=== PATIENT | male | born 1950 | race Caucasian/White ===

== ENCOUNTER 2021-04-07 08:40 | Outpatient (REF) | payer MEDICARE, SELFPAY ==
--- NOTE | ~2021-04-07 | MM_ITS ---
EXAMINATION: BONE DENSITOMETRY CLINICAL INDICATION: Osteopenia. COMPARISON: Previous BD dated 04/11/2018 and baseline BD dated 09/15/1999. TECHNIQUE: Using a [employer] DXA System (software version: 13.1) manufactured by [employer], dual-energy x-ray absorptiometry was performed of the lumbar spine and left hip. The images are of good technical quality. Summary results are attached. FINDINGS: AP SPINE L1-L4: Current: BMD 1.049 g/cm2, Z-score -1.6, T-score -1.4, osteopenia, 2.5% increase from previous, 1.5% increase from baseline (<5% change is not significant). Prior: BMD 1.023 g/cm2. Baseline: BMD 1.033 g/cm2. LEFT FEMUR, NECK: Current: BMD 0.848 g/cm2, Z-score -0.9, T-score -1.7, osteopenia. Prior: BMD 0.915 g/cm2. Baseline: BMD 0.901 g/cm2. LEFT FEMUR, TOTAL: Current: BMD 1.077 g/cm2, Z-score 0.1, T-score -0.2, normal, 1.2% decrease from previous, 2.7% increase from baseline (<5% change is not significant). Prior: BMD 1.090 g/cm2. Baseline: BMD 1.049 g/cm2. IDENTIFIED RISK FACTORS: Intestinal/bowel disease, secondary osteoporosis. HISTORY OF FRACTURE: None listed. MEDICATIONS: Vitamin D. MM/XR DEXA axial skeleton IMPRESSION: 1. DIAGNOSIS: Osteopenia based on the lowest T-score value of -1.7 in the femoral neck applying World Health Organization criteria. 2. 10-YEAR FRACTURE RISK PREDICTION, FRAX: Major osteoporotic fracture (clinical spine, forearm, hip or shoulder) 6.5%. Hip fracture 1.5%. 3. Treatment Recommendations: NOF guidelines recommend consideration for treatment in postmenopausal women and men age 50 and older presenting with the following: -A hip or vertebral (clinical or morphometric) fracture. -T-score less than or equal to -2.5 at the femoral neck or spine after appropriate evaluation to exclude secondary causes. -Low bone mass at the hip or spine and a 10-year fracture probability by FRAX of greater than or equal to 3% for hip fracture or greater than or equal to 20% for major osteoporotic fracture based on the [place] adapted WHO algorithm. 4. Other Recommendations: All treatment decisions require clinical judgment and consideration of individual patient factors, including patient preferences, comorbidities, previous drug use, risk factors not captured in the FRAX model (e.g. frailty, falls, vitamin D deficiency, increased bone turnover, interval significant decline in bone density) and possible under or overestimation of fracture risk by FRAX. Additional medical evaluation for secondary cause of low bone mineral density may be appropriate. FUTURE SCAN RECOMMENDATION: People with diagnosed cases of osteoporosis or at high risk for fracture should have regular bone mineral density tests. For patients eligible for Medicare, routine testing is allowed once every 2 years. The testing frequency can be increased to one year for patients who have rapidly progressing disease, those who are receiving or discontinuing medical therapy to restore bone mass, or have additional risk factors.
== END 2021-04-07 08:41 | disposition home or self-care (01) ==
LOC: HO.MAMMO 08:40
PROVIDERS: PCP Internal Medicine; Visit Provider Internal Medicine
DX: Z13.820 Encounter for screening for osteoporosis (principal); M85.88 Other specified disorders of bone density and structure, other site
CPT/HCPCS: 77080

== ENCOUNTER 2021-04-18 10:37 | Outpatient (REF) | payer MEDICARE, SELFPAY ==
[2021-04-18 10:43] LABS: MANUAL DIFF FLAG NO
[2021-04-18 11:06] LABS: Basophils Absolute Auto 0.1 X10*3/uL (0.0-0.2); Basophils Percent Auto 0.8 % (0-2); Eosinophils Absolute Auto 0.3 X10*3/uL (0.0-0.4); Eosinophils Percent Auto 3.7 % (0-4); Hematocrit 46.6 % (42-52); Hemoglobin 15.4 g/dl (14.0-18.0); Imm Gran Abs Auto 0.04 X10*3/uL (0.00-0.03); Imm Gran Pct Auto 0.5 % (0.0-0.4); Lymphocytes Absolute Auto 2.3 X10*3/uL (1.2-4.9); Lymphocytes Percent Auto 29.9 % (20-40); Mean Corpuscular Volume 90.8 fL (80-98); Mean Platelet Volume 10.8 fL (9.4-12.4); Monocytes Absolute Auto 0.7 X10*3/uL (0.1-1.2); Neutrophils Absolute Auto 4.2 X10*3/uL (2.0-8.3); Neutrophils Percent Auto 56.1 % (45-73); Platelet Count 231 X10*3/uL (160-400); Red Blood Count 5.13 X10*6/uL (4.60-5.80); Red Cell Distribution Width 13.8 % (11.0-16.0); White Blood Count 7.6 X10*3/uL (4.8-10.8)
[2021-04-18 11:34] LABS: Estimated Average Glucose 126 mg/dL
[2021-04-18 11:42] LABS: Alanine Aminotransferase 59 U/L (0-40); Albumin Level 3.9 g/dL (3.5-5.0); Alkaline Phosphatase 90 U/L (39-117); Anion Gap 14 (12-20); Aspartate Amino Transferase 43 U/L (5-37); Bilirubin Total 0.5 mg/dL (0.0-1.0); Blood Urea Nitrogen 14 mg/dL (9-16); Calcium 9.2 mg/dL (8.4-10.2); Carbon Dioxide 21 mmol/L (22-29); Chloride 111 mmol/L (96-108); Cholesterol 138 mg/dL; Estimated Glomerular Filt Rate > 60; Glucose Fasting 124 mg/dL (60-99); HDL Cholesterol 30 mg/dL; LDL Cholesterol Calculated 87 mg/dl; Sodium 142 mmol/L (135-145); Total Protein 6.8 g/dL (6.5-8.0); Triglycerides 105 mg/dL
[2021-04-18 12:01] LABS: Reflex LDLD? No
[2021-04-18 12:08] LABS: PSA,Total (Free>4and<10) 1.81 ng/mL (0.00-4.00); Vitamin D 25-OH Total 29.2 ng/mL (>30)
[2021-04-18 12:28] LABS: Appearance Urine CLEAR; Color Urine YELLOW; Glucose Urine UA NEG (NEG); Leukocyte Esterase Urine NEG (NEG); Nitrite Urine NEG (NEG); PH 5.5 (5.0-8.0); Specific Gravity - Urine >= 1.030 (1.005-1.025); Urine Blood NEG (NEG); Urine Ketones NEG (NEG); Urine Protein NEG (NEG-TRACE)
[2021-04-18 13:34] LABS: Creatinine Urine 227.29 mg/dL; Microalbum/Creatinine Ratio Ur 8.3 ug/mg cr
== END 2021-04-18 10:38 | disposition home or self-care (01) ==
LOC: HO.LNP 10:37
PROVIDERS: Visit Provider Internal Medicine
DX: Z00.00 Encounter for general adult medical examination without abnormal findings (principal); E78.00 Pure hypercholesterolemia, unspecified; R73.03 Prediabetes; R79.89 Other specified abnormal findings of blood chemistry; I10 Essential (primary) hypertension; M81.0 Age-related osteoporosis without current pathological fracture; E55.9 Vitamin D deficiency, unspecified; Z12.5 Encounter for screening for malignant neoplasm of prostate
CPT/HCPCS: 80053; 80061; 81003; 82043; 82306; 83036; 84153; 85025

== ENCOUNTER → 2022-02-13 09:24 | Outpatient (REF) | payer MEDICARE, SELFPAY ==
--- NOTE | 2022-02-13 09:28 | CA_ITS ---
Acquisition Time: 2022-02-13 09:46:34 Total Exercise Time: 00:05:23 Test Indications: Abnormal ECG Medications: FLOMAX ATORVASTATIN HCTZ LISINOPRIL MISOLAMINE Protocol: NORBERT Max HR: 126 BPM 85% of Pred: 148 BPM Max BP: 208/062 mmHG Max Work Load: 7.6 METS Exercise stress test using Norbert protocol, total 5 min 23 se, METS 7.60, MAPHR 85%. Test ended due to increased SOB without CP. Mild scooped ST depressions in leads 2, 3 and V4-V6, with occasional PVC's. Hypertensive response to exercise. Test reviewed with Dr. Hernandes Recomending Nuclear stress test and ECHO Referred By: Renato Martinez Overread By: Jackie White NP
== END ==
LOC: HO.CARD 09:24
PROVIDERS: Absent Provider Internal Medicine; PCP Internal Medicine; Visit Provider Internal Medicine
DX: R07.9 Chest pain, unspecified (principal)
CPT/HCPCS: 93017

== ENCOUNTER → 2022-03-26 07:53 | Outpatient (REF) | payer MEDICARE, SELFPAY ==
--- NOTE | ~2022-03-26 | NM_ITS ---
EXERCISE MYOCARDIAL PERFUSION STUDY INDICATION: Abnormal EKG, abnormal stress test. TECHNIQUE: The patient was brought in for an exercise perfusion study on 03/26/2022. Patient performed exercise as per Rudy protocol and was injected 30 mCi of sestamibi once target heart rate was achieved. Images were obtained using the SPECT gamma camera interlaced with the gating device. Images were obtained in supine position. Resting perfusion study was performed on 03/27/2022. Patient was administered 30 mCi of sestamibi intravenously at rest. Images were then obtained in supine position. Total DLP 110mGy-cm. Images were processed with the software and compared side to side in short axis, horizontal long axis and vertical long axis views. FINDINGS: Raw images were reviewed. The stress perfusion study showed diminished tracer uptake along the inferior wall and parts of inferior septum. There is improvement with CT attenuation correction suggestive of diaphragmatic attenuation artifact. There is also slightly diminished tracer uptake at the apex. Suspect artifactual. The gated study shows normal LV systolic function with calculated LVEF of 65%. LV cavity is normal in size. The gated study shows normal wall thickening and contraction of segments. Resting study shows diminished tracer uptake along the inferior wall and parts of inferior septum, similar to stress acquisition. There is improvement with CT attenuation correction suggestive of diaphragmatic attenuation artifact. Slightly diminished tracer uptake at the apex, similar to the stress acquisition, probably artifactual. Gating at rest reveals normal wall motion with ejection fraction at 62%. The findings are consistent with fixed inferior defect likely from diaphragmatic attenuation artifact. Small apical defect, fixed, likely artifactual NM/NM kimberly perf SPECT rest & str IMPRESSION: 1. Myocardial perfusion imaging study shows no clear evidence of any ischemia or infarction. Likely normal myocardial perfusion. 2. Gated LVEF is 65% during stress and 62% during rest. 3. Transient ischemic dilatation not present. EKG component of the test reported separately.
--- NOTE | 2022-03-26 07:58 | CA_ITS ---
Transthoracic Echocardiogram Patient (Last, First, Middle): Azael Castro L Gender: Male Date of : 1950 Age: 71 Procedure Date: 03/26/2022 Procedure Type: Transthoracic Echocardiogram Location: OP Height: 167.64 cm Weight: 96.16 kg BSA: 2.05 m2 Heart Rate: bpm BP: 130 / 80 mmHg [employer] Crewmember: SB Referring MD: Renato Martinez MD Symptoms: R94.31`ABNORMAL EKG R07.9 CHEST PAIN Study Quality: Adequate w contrast ECG Rhythm: Bradycardia Conclusions: - The left ventricular systolic function is normal. The calculated ejection fraction is 67% by biplane method. - No obvious valvular pathology seen on this study. Findings Procedure Information Contrast agent, definity, is being given per protocol without apparent complications. Left Ventricle Normal left ventricular cavity size. There is normal left ventricular wall thickness. The left ventricular systolic function is normal. The calculated ejection fraction is 67% by biplane method. There is no evidence of regional wall motion abnormalities. Diastolic function is normal for age. Right Ventricle Normal right ventricular cavity size and systolic function. Atria Both atria are normal in size. Aortic Valve There is a normal trileaflet aortic valve. There is no aortic valve stenosis. There is no aortic valve regurgitation. Mitral Valve The mitral valve appears normal. There is no mitral valve regurgitation. There is no mitral valve stenosis. Pulmonic Valve The pulmonic valve is likely normal. Tricuspid Valve Normal tricuspid valve structure. There is trace tricuspid valve regurgitation. The pulmonary artery systolic pressure is normal. Great Vessels The asc aorta and aortic arch are normal in size. Venous The inferior vena cava is normal in size and collapses greater than 50% with inspiration. Pericardium/Pleural There is no evidence of pericardial effusion. Prior Study Comparison No prior study available for comparison. Recommendations, Care & Conclusions No obvious valvular pathology seen on this study. Measurements 2D Linear Measurements IVSd: 0.97 0.6-0.9/0.6-1.0 cm LVIDd: 4.90 3.9-5.3/4.2-5.9 cm LVIDd Index: 2.39 2.4-3.2/2.2-3.1 cm/m2 LVIDs: 3.21 2.0-3.6 cm LVPWd: 0.91 0.7-1.1 cm LA Diam: 4.00 2.7-3.8/3.0-4.0 cm LAIDs Index: 1.95 1.5-2.3 cm/m2 LV Mass: 201.20 67-162/88-224 g LV Mass Index: 98.15 43-95/49-115 g/m2 LVOT Diam: 2.20 3.0+(-)1.3 cm 2D Systolic Function EF 4C: 69.90 >55% EF 2C: 63.40 >55% EF BiP: 66.80 >55% Mitral Valve MV Pk E: 0.74 MV PK A: 0.58 MV Decel Time: 215.00 E/A: 1.30 E'Medial: 7.62 E/E' Med: 9.70 PHT: 63.00 MVA PHT: 3.49 Decel [place]: 3.45 Aortic Valve AoV Pk Sly: 1.28 AoV Mn Sly: 0.85 AoV VTI: 0.28 AoV Pk Grad: 7.00 Aov Mn Grad: 3.00 GINETTE Cont.VTI: 2.86 LVOT LVOT Pk Sly: 1.02 LVOT Mn Sly: 0.67 LVOT VTI: 0.21 LVOT Pk Grad: 4.00 LVOT Mn Grad: 2.00 LVOT Diam: 2.20 LVOT Area: 3.80 Diastolic Function MV Pk E: 0.74 MV Pk A: 0.58 E/A: 1.30 E'Medial: 7.62 E/E' Med: 9.70 Right Ventricle TAPSE (mm): 21.40 TVS' Sly: 12.50 Tricuspid Valve RA Press: 8.00 Great Vessels Aorta Sinus of Valsalva: 3.20 2.0-3.5 cm Ao Asc: 3.20 2.1-3.4 cm Ao Arch: 3.10 Pulmonary Valve PV Pk Sly: 1.47 Peak PV Grad: 9.00 Updated in Other Vendor System with Status of Final Sen Ford MD electronically signed on 03/26/2022 12:05:39 PM with status of Final
--- NOTE | 2022-03-26 08:00 | CA_ITS ---
Acquisition Time: 2022-03-26 09:30:10 Total Exercise Time: 00:07:40 Test Indications: ABN EKG, ABN ETT Medications: SEE CHART Protocol: NORBERT Max HR: 127 BPM 85% of Pred: 148 BPM Max BP: 210/060 mmHG Max Work Load: 9.5 METS Exercise stress test with exercise 7 min 40 sec of Norbert protocol, achieving 85% MPHR, with moderate shortness of breath, no chest discomfort, with isolated PVC and PACs, with hypertensive response to exercise with max BP 210/60, without EKG changes meeting criteria for ischemia, with borderline ST changes noted, Nuclear images pending. Test reviewed with Dr Ford Referred By: Renato Martinez Overread By: GLENN ABRAHAM
== END ==
LOC: HO.CARD 07:53
PROVIDERS: PCP Internal Medicine; Visit Provider Internal Medicine
DX: R07.9 Chest pain, unspecified (principal); R94.39 Abnormal result of other cardiovascular function study
CPT/HCPCS: 78452; 93017; 93306; A9500; Q9957

== ENCOUNTER 2023-02-04 08:37 | Day surgery (SDC) | payer OTHER, SELFPAY ==
--- NOTE | 2023-02-01 11:50 | HO.ANESPROP2 ---
HPI - Anesthesia Eval Consult details Narrative: 72yo M for Colonoscopy COUNT INCLUDES THE [facility] Past Medical History Medical History (Updated 02/01/23 @ 11:05 by Amparo Booth, RN) Elevated cholesterol HTN (hypertension) Kidney stone Ulcerative colitis Surgical History Surgical History (Updated 02/01/23 @ 11:06 by Amparo Booth, RN) Hx of colonoscopy Meds Allergies Allergy/AdvReac Type Severity Reaction Status Date / Time No Known Allergies Allergy Verified 02/01/23 11:04 Home Medications Medication Instructions Recorded Confirmed Last Taken Type Vitamin C PO 02/01/23 Unknown History atorvastatin 10 mg tablet 10 mg PO DAILY 02/01/23 02/01/23 Unknown History cobalamine combinations capsule cap PO 02/01/23 02/01/23 Unknown History hydrochlorothiazide 25 mg tablet 25 mg PO DAILY 02/01/23 02/01/23 Unknown History lisinopril PO 02/01/23 Unknown History mesalamine 1.2 gram tablet,delayed 2.4 g PO DAILY 02/01/23 02/01/23 Unknown History release vitamin B complex 1 tab PO DAILY 02/01/23 02/01/23 Unknown History Exam Exam Date and Time: February 01, 2023 1150 Assessment and Plan Assessment Anesthesia Assessment: Chart Reviewed
[2023-02-04 08:54] VITALS: BP 169/94; PULSE 83; RESP 18; TEMP 36.6; O2SAT 97; BMI 31.0
[2023-02-04 09:22] VITALS: BP 169/94; PULSE 83; RESP 18; TEMP 36.6; O2SAT 97
--- NOTE | 2023-02-04 09:51 | HO.ANESPROP2 ---
[facility] Past Medical History Medical History Elevated cholesterol HTN (hypertension) Kidney stone Ulcerative colitis Family History Family history of problems with anesthesia: No Surgical History Surgical History (Updated 02/01/23 @ 11:06 by Amparo Booth RN) Hx of colonoscopy History of Problems with Anesthesia: No Social History Social History Patient Tobacco Use Status: Former Tobacco user Quit Date: 40 years.ago Use of substances other than those prescribed or required for medical reasons: No Are you DNR?: No Advance Directives: No Advance Directives Information Provided: Yes Meds Allergies Allergy/AdvReac Type Severity Reaction Status Date / Time No Known Allergies Allergy Verified 02/01/23 11:04 Active Medications: Current Medications Lactated Ringer's (Lr) 1,000 mls @ 100 mls/hr IVCONT .Q10H VIDHI Last Admin: 02/04/23 09:29 Dose: 100 mls/hr Ondansetron HCl (Ondansetron Hcl 4 Mg/2 Ml Vial) 4 mg IVPUSH ONCE PRN PRN Reason: Nausea and Vomiting Sodium Biphosphate/Sodium Phosphate (Sodium Phosphate,[place]-Dibasic 133 Ml Enema) 133 ml PA ONCE PRN PRN Reason: Poor Colonoscopy Prep Results Home Medications Medication Instructions Recorded Confirmed Last Taken Type Vitamin C 1 tab PO DAILY 02/01/23 02/04/23 Unknown History atorvastatin 10 mg tablet 10 mg PO DAILY 02/01/23 02/04/23 Unknown History cobalamine combinations capsule 1 cap PO DAILY 02/01/23 02/04/23 Unknown History hydrochlorothiazide 25 mg tablet 12.5 mg PO DAILY 02/01/23 02/04/23 Unknown History lisinopril 1 tab PO DAILY 02/01/23 02/04/23 Unknown History mesalamine 1.2 gram tablet,delayed 2.4 g PO DAILY 02/01/23 02/04/23 Unknown History release vitamin B complex 1 tab PO DAILY 02/01/23 02/04/23 Unknown History Exam Exam Date and Time: February 04, 2023 0951 Height,Weight and Vital Signs: Height 5 ft 8 in Weight 92.533 kg Last Vital Signs Temp 97.8 F 02/04/23 09:22 Pulse 83 02/04/23 09:22 Resp 18 02/04/23 09:22 BP 169/94 H 02/04/23 09:22 Pulse Ox 97 02/04/23 09:22 O2 Del Method Room Air 02/04/23 09:22 Airway Mallampati Class: III TM Dist: >3cm Loose/Missing/Broken Teeth: No Heart: rrr Lungs: clear Assessment and Plan Final Anesthetic Review Family History of Problems with Anesthesia: No History of Problems with Anesthesia: No ASA Class: II Final Preanesthetic Review: No Changes in Pt Med Stat, Meds/Allgs Chart Reviewed, Consent Obtained/Reviewed and Anes Risks/Benef Reviewed Patient Risk: Intermediate Procedure Risk: Low Anesthetic Plan Anesthetic Plan: MAC: Disposition: Standard PACU
[2023-02-04 10:43] VITALS: BP 130/83; PULSE 72; RESP 19; TEMP 36.1; O2SAT 94
--- NOTE | 2023-02-04 10:49 | PM.OP ---
Brief Operative Note Date of Service: 02/04/23 Pre-op diagnosis: Screening, Ulcerative colitis Post-op diagnosis: other (Same, R/O Dysplasia) Procedure: Colonoscopy to the cecum and TI with biopsies Surgeon: Froy Cochran Anesthesia: MAC Was an Milk Route Deliverer used for this Procedure?: No Estimated blood loss (mL): 2.0 Pathology: other (A. Ascending colon B. Transverse colon C. Descending colon D. Sigmoid colon E. Rectum) Condition: stable Disposition: PACU
[2023-02-04 10:58] VITALS: BP 152/80; PULSE 69; RESP 20; O2SAT 96
[2023-02-04 11:13] VITALS: BP 159/75; PULSE 60; RESP 18; TEMP 36.4; O2SAT 99
--- NOTE | 2023-02-04 11:35 | OP_ITS ---
DATE OF SERVICE: 02/04/2023 SURGEON: Froy Cochran MD INDICATIONS: The patient presents for followup of long-standing ulcerative colitis, personal history of tubular adenoma of the colon, and need for colorectal cancer screening. Full consent obtained from him for this, including risks of bleeding and perforation. PREOPERATIVE DIAGNOSIS: POSTOPERATIVE DIAGNOSIS: PROCEDURE PERFORMED: ESTIMATED BLOOD LOSS: COMPLICATIONS: ANESTHESIA: Monitored anesthesia care. ASSISTANTS: SPECIMENS: PROCEDURES: Colonoscopy to cecum and terminal ileum with multiple biopsies. PREOPERATIVE DIAGNOSES: History of ulcerative colitis, personal history of tubular adenomas of the colon, and colorectal cancer screening. POSTOPERATIVE DIAGNOSES: History of ulcerative colitis, personal history of tubular adenomas of the colon, colorectal cancer screening, chronic changes of colitis, rule out dysplasia, diverticulosis and internal hemorrhoids. DESCRIPTION OF PROCEDURE: The patient was placed in the left lateral decubitus position. The digital rectal exam revealed no abnormalities. The Olympus video pediatric colonoscope was entered into the rectum and advanced easily to the cecum. Once in the cecum, I did identify cecal pouch with appendiceal orifice and a normal-appearing ileocecal valve. The terminal ileum was cannulated and appeared normal. The scope was withdrawn back in the colon. The entire cecum appeared normal other than some very minimal mucosal changes of a chronic colitis, but without any sign of active colitis. The scope was then slowly withdrawn assessing all mucosal surfaces carefully. Preparation was excellent. Throughout the colon, there were some chronic changes of colitis, but there was no sign of any active colitis, polyps, nor other mucosal abnormalities. There was a mild amount of sigmoid diverticulosis. I did obtain random biopsies in the ascending colon, transverse colon, descending colon, sigmoid colon and rectum. The rectal mucosa did appear normal. The scope was retroflexed visualizing some internal hemorrhoids, but no other pathology. The scope was straightened and withdrawn from the patient. He tolerated the procedure well and was returned to the recovery area in stable condition. IMPRESSION: 1. History of ulcerative colitis, rule out dysplasia. 2. Diverticulosis. 3. Internal hemorrhoids. PLAN: The results of the biopsies will be checked. Assuming there is no dysplasia, I would recommend a repeat colonoscopy in 3 years for further surveillance given his history of ulcerative colitis dating back to 2000 and personal history of tubular adenomas of the colon. He was advised not to use any aspirin and NSAIDs for least 1 week. He was advised to continue his current regimen of mesalamine. If things remain well, I will see him in 3 years for a followup colonoscopy, but he was advised to call sooner as needed. MD MIREYA Millard/DM / [id number] MTDD
== END 2023-02-04 11:30 | disposition home or self-care (01) ==
PROVIDERS: PCP Internal Medicine; Visit Provider Internal Medicine
PROC: 0DJD8ZZ Inspection of Lower Intestinal Tract, Via Natural or Artificial Opening Endoscopic (ICD-10-PCS; CPT 45378; principal; 2023-02-04 09:50)
DX: Z12.11 Encounter for screening for malignant neoplasm of colon (principal); K51.00 Ulcerative (chronic) pancolitis without complications; K57.30 Diverticulosis of large intestine without perforation or abscess without bleeding; K64.8 Other hemorrhoids; Z86.010 Personal history of colon polyps; I10 Essential (primary) hypertension
CPT/HCPCS: 45380; 88305

== ENCOUNTER → 2023-03-04 19:30 | Outpatient (BNV) | payer OTHER, SELFPAY | PROVIDERS: PCP Internal Medicine; Visit Provider Internal Medicine | DX: G47.61 Periodic limb movement disorder (principal) | CPT/HCPCS: 95810 ==

== ENCOUNTER → 2023-03-04 19:30 | Outpatient (REF) | payer OTHER, SELFPAY | LOC: HO.SL 19:30 | PROVIDERS: PCP Internal Medicine; Visit Provider Internal Medicine | DX: G47.30 Sleep apnea, unspecified (principal) | CPT/HCPCS: 95810 ==

== ENCOUNTER 2023-04-25 10:34 | Outpatient (REF) | payer MEDICARE, SELFPAY ==
[2023-04-25 10:43] LABS: MANUAL DIFF FLAG NO
[2023-04-25 11:17] LABS: Appearance Urine Clear; Color Urine Yellow; Glucose Urine UA Negative (Negative); Leukocyte Esterase Urine Negative (Negative); Nitrite Urine Negative (Negative); PH 5.5 (5.0-9.0); Specific Gravity - Urine 1.025 (1.005-1.025); Urine Blood Negative (Negative); Urine Ketones Negative (Negative); Urine Protein Negative (Neg-Trace)
[2023-04-25 11:20] LABS: Bacteria Urine None Seen (None Seen); Hyaline Casts Urine 0-2 /LPF (0-2); RBC Urine 0-2 /HPF (0-2); Squamous Epithelial Cell Urine 0-2 /HPF (0-2); WBC Urine 0-5 /HPF (0-5)
[2023-04-25 11:54] LABS: Basophils Absolute Auto 0.1 X10*3/uL (0.0-0.2); Basophils Percent Auto 1.1 % (0-2); Eosinophils Absolute Auto 0.2 X10*3/uL (0.0-0.4); Eosinophils Percent Auto 2.9 % (0-4); Hematocrit 49.9 % (42.0-52.0); Hemoglobin 16.4 g/dl (14.0-18.0); Imm Gran Abs Auto 0.05 X10*3/uL (0.00-0.03); Imm Gran Pct Auto 0.7 % (0.0-0.4); Lymphocytes Absolute Auto 2.7 X10*3/uL (1.2-4.9); Lymphocytes Percent Auto 35.8 % (20-40); Mean Corpuscular HGB Conc 32.9 g/dl (31.0-36.0); Mean Corpuscular Hemoglobin 29.5 pg (27.0-33.0); Mean Corpuscular Volume 89.7 fL (80.0-98.0); Mean Platelet Volume 10.6 fL (9.4-12.4); Monocytes Absolute Auto 0.7 X10*3/uL (0.1-1.2); Monocytes Percent Auto 9.4 % (2-11); Neutrophils Absolute Auto 3.7 x10*3/uL (2.0-8.3); Neutrophils Percent Auto 50.1 % (45-73); Platelet Count 258 X10*3/uL (160-400); Red Blood Count 5.56 X10*6/uL (4.60-5.80); White Blood Count 7.5 X10*3/uL (4.8-10.8)
[2023-04-25 12:18] LABS: Alanine Aminotransferase 57 U/L (0-40); Albumin Level 3.9 g/dL (3.5-5.0); Alkaline Phosphatase 92 U/L (39-117); Anion Gap 13 (12-20); Aspartate Amino Transferase 44 U/L (5-37); Bilirubin Total 0.5 mg/dL (0.0-1.0); Blood Urea Nitrogen 14 mg/dL (9-16); Calcium 9.2 mg/dL (8.4-10.2); Carbon Dioxide 25 mmol/L (22-29); Chloride 107 mmol/L (96-108); Cholesterol 151 mg/dL (<200); Estimated Glomerular Filt Rate > 60; Glucose Fasting 111 mg/dL (60-99); HDL Cholesterol 35 mg/dL (>40); LDL Cholesterol Calculated 77 mg/dL (<100); Potassium 3.9 mmol/L (3.3-5.1); Sodium 141 mmol/L (135-145); Total Protein 7.6 g/dL (6.5-8.0); Triglycerides 199 mg/dL (<150)
[2023-04-25 12:23] LABS: PSA,Total (Free>4and<10) 2.86 ng/mL (0.00-4.00); Vitamin D 25-OH Total 65.7 ng/mL (>30)
== END 2023-04-25 10:35 | disposition home or self-care (01) ==
LOC: HO.LNP 10:34
PROVIDERS: Visit Provider Internal Medicine
DX: Z00.00 Encounter for general adult medical examination without abnormal findings (principal); E78.00 Pure hypercholesterolemia, unspecified; I10 Essential (primary) hypertension; R97.20 Elevated prostate specific antigen [PSA]; E55.9 Vitamin D deficiency, unspecified; Z12.5 Encounter for screening for malignant neoplasm of prostate
CPT/HCPCS: 80053; 80061; 81001; 82306; 84153; 85025